=== PATIENT | female | born 2000 | race Caucasian/White ===

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

== ENCOUNTER 2022-01-19 19:31 | Emergency (ER) | payer OTHER ==
[2022-01-19 19:50] VITALS: BP 103/67; PULSE 90; TEMP 98.6; BMI 18.8
== END 2022-01-19 21:52 | disposition home or self-care (01) ==
LOC: JERFT 19:31
DX: T78.40XA Allergy, unspecified, initial encounter (principal)
CPT/HCPCS: 99283-25